=== PATIENT | female | born 1950 | race Caucasian/White ===

== ENCOUNTER → 2020-12-23 | Outpatient (CLI) | payer MEDICARE | END | disposition home or self-care (01) | LOC: STAR 15:53 | PROVIDERS: ATTEND Internal Medicine Gastroenterology | DX: Z01.818 Encounter for other preprocedural examination (principal); C82.90 Follicular lymphoma, unspecified, unspecified site; D64.9 Anemia, unspecified | CPT/HCPCS: 93005 ==

== ENCOUNTER 2021-06-30 07:29 | Day surgery (SDC) | payer MEDICARE ==
[~2021-06-30] VITALS: Ht 165.1 cm; Wt 48.7 kg
[~2021-06-30 07:29] MED LIST: ACET650S21 PO; ALEN70TA3 PO; FERR324T18 PO; HYDR200T72 PO; SERT50TA28 PO; ZINC PO
[2021-06-30 07:44] VITALS: BP 107/74
[2021-06-30] MEDS ORDERED: CHLORHEXIDINE 15 ML UDC ONE (07:44)
[2021-06-30] MEDS ORDERED: LACTATED RINGERS 1,000 ML IV SCH (08:00)
[2021-06-30] MEDS ORDERED: CHLORHEXIDINE 15 ML UDC PO ONE (08:00)
[2021-06-30] MEDS ORDERED: PROPOFOL 50 ML ONE (08:36)
== END 2021-06-30 10:28 | disposition home or self-care (01) ==
LOC: OUT 07:29 → MERGE 09:30 → OUT 10:28
PROVIDERS: ATTEND Internal Medicine Gastroenterology
DX: D13.2 Benign neoplasm of duodenum (principal); M35.00 Sjogren syndrome, unspecified; Z79.899 Other long term (current) drug therapy; Z88.2 Allergy status to sulfonamides
CPT/HCPCS: 43236; 43239; 43251; 88305; 93005; J2704; J7120